=== PATIENT | male | born 1985 | race Caucasian/White ===

== ENCOUNTER 2023-01-15 12:23 | Emergency (ER) | payer OTHER ==
[~2023-01-15] VITALS: Ht 170.2 cm; Wt 65.0 kg
[2023-01-15 12:27] VITALS: O2SAT 97
[2023-01-15] MEDS ORDERED: ONDANSETRON 4MG ODT PO STA (13:51)
[2023-01-15 14:06] LABS: BASOPHILS % 0.3 % (0.0-2.0); HEMATOCRIT. 41.1 % (42.0-52.0); HEMOGLOBIN. 14.2 g/dL (14.0-18.0); LYMPHOCYTES % 11.2 % (20.0-50.0); MEAN CORPUSCULAR VOLUME 83.8 fL (80.0-94.0); MEAN PLATELET VOLUME 7.1 fl (7.4-10.4); MONOCYTES % 2.9 % (2.0-8.0); NEUTROPHILS % 85.6 % (40.0-76.0); PLATELET 265 x1000/uL (130-400)
[2023-01-15 14:15] LABS: CHLORIDE 105 mEq/L (98-107)
[2023-01-15] MEDS ORDERED: ONDANSETRON HCL 4MG/2ML INJ IV STA (14:37)
[2023-01-15 15:09] VITALS: TEMP 98.5
[2023-01-15] MEDS ORDERED: NALO4SPR BOTHNSTRLS (17:37)
[2023-01-15] MEDS ORDERED: MORPHINE SULFATE 2 MG/ML CPJ (NOT FOR IM USE) IV ONE (17:45)
[2023-01-15 17:56] VITALS: BP 106/69; PULSE 50; RESP 14
== END 2023-01-15 17:37 | disposition home or self-care (01) ==
LOC: ER 12:23
DX: R10.9 Unspecified abdominal pain (principal); M79.10 Myalgia, unspecified site; E11.9 Type 2 diabetes mellitus without complications
CPT/HCPCS: 80053; 85025; 36415; 70450; 74176; 93005; 96374; 96375; 99285; Q0162; J2405; J2270; Z7610